=== PATIENT | female | born 1955 | race Caucasian/White ===

== ENCOUNTER → 2016-11-15 | Outpatient (CLI) | payer BC ==
--- NOTE | 2016-11-16 18:53 | Diagnostic Imaging Report ---
Bilateral screening mammogram The current study was also evaluated with a Computer Aided Detection (CAD) system. INDICATION: Screening. No current complaints stated on the questionnaire. COMPARISON: 08/06/2014. FINDINGS: The breasts are composed of scattered fibroglandular densities. There are bilateral breast nodules seen and scattered bilateral benign-appearing calcifications noted. No mass, architectural distortion, or suspicious cluster of calcifications is seen. Allowing for technique and positional differences, no suspicious change is seen. IMPRESSION: No significant change. ACR BI-RADS Category 2: Benign findings. Result letter will be mailed to the patient. Note: At least 10% of breast cancer is not imaged by mammography. Dictated by: Dictated on workstation # [id number]
== END ==
LOC: RAD 14:49
PROVIDERS: ATTEND Family Medicine
DX: Z12.31 Encounter for screening mammogram for malignant neoplasm of breast (principal)
CPT/HCPCS: 77067

== ENCOUNTER → 2018-01-03 | Outpatient (CLI) | payer BC ==
--- NOTE | 2018-01-04 13:34 | Diagnostic Imaging Report ---
EXAM: Digital mammogram bilateral screening with 3D tomosynthesis. COMPARISON: This study was compared prior exams of 11/15/2016 and 08/06/2014. Currently there are no complaints. FINDINGS: And there are scattered fibroglandular densities in both breasts which could obscure a lesion. The benign-appearing nodular densities in each breast seen on the prior study are again evident and no different. However, there is a small group of calcific densities in the upper-outer quadrant of the right breast roughly 12 - 14 CM from the nipple. There are few vascular structures in this area and these calcifications could be vascular in nature. Even so, I would recommend a compression/magnification view of this area be obtained in the CC and ML projections so that these calcific densities can be better characterized. The overall appearance of the breasts has not changed significantly otherwise. The benign-appearing nodular densities in each breast seen on the prior study are again visualized and no different. There is no primary or secondary sign of malignancy identified. IMPRESSION: Additional mammographic views of the right breast were recommended for further study. ACR BI-RADS Category 0: Incomplete. (Needs additional imaging evaluation). Result letter will be mailed to the patient. Note: At least 10% of breast cancer is not imaged by mammography. Dictated by: Dictated on workstation # [id number]
== END ==
LOC: RAD 15:02
PROVIDERS: ATTEND Family Medicine
DX: Z12.31 Encounter for screening mammogram for malignant neoplasm of breast (principal)
CPT/HCPCS: 77067

== ENCOUNTER → 2018-01-31 | Outpatient (CLI) | payer BC ==
[~2018-01-31] VITALS: Ht 152.4 cm; Wt 126.1 kg
[~2018-01-31] MED LIST: LIDOCAINE 1% INJ 20 ML 20 ML VIAL INJ ONE; LIDOCAINE 1% INJ 20 ML 20 ML VIAL ONE
[2018-01-31 13:00] VITALS: BP 121/68
[2018-01-31 13:45] VITALS: BP 129/80
--- NOTE | 2018-01-31 15:21 | Diagnostic Imaging Report ---
INDICATION: Right breast calcifications. Patient presents for stereotactic biopsy. PROCEDURE: The patient was brought to the mammography suite. The right breast was positioned for a CC approach. The calcifications in the outer portion of the right breast were stereotactically targeted. Right breast was prepped and draped in usual sterile fashion. Small amount of 1% lidocaine was utilized for local anesthesia. 8 gauge needle was advanced into the right breast from a superior approach. A total of four core biopsies were obtained with the vacuum assisted device. Specimen radiograph was obtained demonstrating the majority of calcifications located in specimen labeled #2 and #3. A localizer clip was then deployed. Followup mammography demonstrates clip in the upper-outer right breast at mid depth. Patient tolerated the procedure well. IMPRESSION: Stereotactically assisted core biopsy of the microcalcifications in the upper-outer right breast utilizing a vacuum-assisted device. Pathology results are currently pending. Dictated by: Dictated on workstation # [id number]
== END ==
LOC: RAD 12:41
PROVIDERS: ATTEND Family Medicine
DX: D24.1 Benign neoplasm of right breast (principal)
CPT/HCPCS: 19081; 88305

== ENCOUNTER → 2018-09-17 | Outpatient (CLI) | payer BC | LOC: WOUNDCARE 13:23 | PROVIDERS: ATTEND Surgery | DX: T88.59XA Other complications of anesthesia, initial encounter (principal); L98.492 Non-pressure chronic ulcer of skin of other sites with fat layer exposed; E66.01 Morbid (severe) obesity due to excess calories; Z96.642 Presence of left artificial hip joint | CPT/HCPCS: 11042; 87070; 87077; 87186; 87205 ==

== ENCOUNTER → 2018-09-25 | Outpatient (CLI) | payer BC | LOC: WOUNDCARE 09:57 | PROVIDERS: ATTEND Surgery | DX: T88.59XA Other complications of anesthesia, initial encounter (principal); L98.492 Non-pressure chronic ulcer of skin of other sites with fat layer exposed; E66.01 Morbid (severe) obesity due to excess calories; Z68.41 Body mass index [BMI] 40.0-44.9, adult; Z96.642 Presence of left artificial hip joint | CPT/HCPCS: 11042 ==

== ENCOUNTER → 2018-10-02 | Outpatient (CLI) | payer BC | LOC: WOUNDCARE 09:35 | PROVIDERS: ATTEND Surgery | DX: T88.59XA Other complications of anesthesia, initial encounter (principal); L98.492 Non-pressure chronic ulcer of skin of other sites with fat layer exposed; E66.01 Morbid (severe) obesity due to excess calories; Z68.41 Body mass index [BMI] 40.0-44.9, adult; Z96.642 Presence of left artificial hip joint | CPT/HCPCS: 11042 ==

== ENCOUNTER → 2018-10-09 | Outpatient (CLI) | payer BC | LOC: WOUNDCARE 09:55 | PROVIDERS: ATTEND Surgery | DX: T88.59XA Other complications of anesthesia, initial encounter (principal); L98.492 Non-pressure chronic ulcer of skin of other sites with fat layer exposed; E66.01 Morbid (severe) obesity due to excess calories; Z68.41 Body mass index [BMI] 40.0-44.9, adult; Z96.642 Presence of left artificial hip joint | CPT/HCPCS: 11042; 87070; 87077; 87205 ==

== ENCOUNTER → 2018-10-16 | Outpatient (CLI) | payer BC | LOC: WOUNDCARE 10:01 | PROVIDERS: ATTEND Surgery | DX: T88.59XA Other complications of anesthesia, initial encounter (principal); L98.492 Non-pressure chronic ulcer of skin of other sites with fat layer exposed; E66.01 Morbid (severe) obesity due to excess calories; Z68.41 Body mass index [BMI] 40.0-44.9, adult; Z96.642 Presence of left artificial hip joint | CPT/HCPCS: 11042 ==

== ENCOUNTER → 2018-10-23 | Outpatient (CLI) | payer BC | LOC: WOUNDCARE 10:23 | PROVIDERS: ATTEND Surgery | DX: T88.59XA Other complications of anesthesia, initial encounter (principal); L98.492 Non-pressure chronic ulcer of skin of other sites with fat layer exposed; E66.01 Morbid (severe) obesity due to excess calories; Z68.41 Body mass index [BMI] 40.0-44.9, adult; Z96.642 Presence of left artificial hip joint | CPT/HCPCS: 11042 ==

== ENCOUNTER → 2018-10-30 | Outpatient (CLI) | payer BC | LOC: WOUNDCARE 09:49 | PROVIDERS: ATTEND Surgery | DX: T88.59XA Other complications of anesthesia, initial encounter (principal); L98.492 Non-pressure chronic ulcer of skin of other sites with fat layer exposed; E66.01 Morbid (severe) obesity due to excess calories; Z96.642 Presence of left artificial hip joint | CPT/HCPCS: 11042 ==

== ENCOUNTER → 2018-11-06 | Outpatient (CLI) | payer BC | LOC: WOUNDCARE 09:37 | PROVIDERS: ATTEND Surgery | DX: B35.4 Tinea corporis (principal); L92.8 Other granulomatous disorders of the skin and subcutaneous tissue; T88.59XA Other complications of anesthesia, initial encounter; L98.492 Non-pressure chronic ulcer of skin of other sites with fat layer exposed; E66.01 Morbid (severe) obesity due to excess calories; Z68.41 Body mass index [BMI] 40.0-44.9, adult; Z96.642 Presence of left artificial hip joint | CPT/HCPCS: 17250 ==

== ENCOUNTER → 2018-11-13 | Outpatient (CLI) | payer BC | LOC: WOUNDCARE 09:51 | PROVIDERS: ATTEND Surgery | DX: B35.4 Tinea corporis (principal); L92.8 Other granulomatous disorders of the skin and subcutaneous tissue; T88.59XA Other complications of anesthesia, initial encounter; L98.492 Non-pressure chronic ulcer of skin of other sites with fat layer exposed; E66.01 Morbid (severe) obesity due to excess calories; Z68.41 Body mass index [BMI] 40.0-44.9, adult; Z96.642 Presence of left artificial hip joint | CPT/HCPCS: 17250 ==

== ENCOUNTER → 2018-11-13 | Outpatient (CLI) | payer BC ==
--- NOTE | 2018-11-13 14:41 | Diagnostic Imaging Report ---
INDICATION: Six-month followup right breast stereotactic biopsy. COMPARISON: 01/23/2018 and 01/31/2018. FINDINGS: The patient is status post stereotactic biopsy of clustered microcalcifications in the upper outer right breast. The biopsy results were benign. There is some residual density at the biopsy site, likely from scarring. Rounded densities in the right breast appear stable and consistent with benign etiologies. No new mass or malignant appearing microcalcifications are seen. There are benign calcifications on the right. The right axilla is unremarkable. IMPRESSION: Stable right mammogram. No mammographic features suspicious for malignancy are identified. ACR BI-RADS Category 2: Benign findings. Result letter will be mailed to the patient. Note: At least 10% of breast cancer is not imaged by mammography. Dictated by: Dictated on workstation # [id number]
== END ==
LOC: RAD 13:07
PROVIDERS: ATTEND Family Medicine
DX: R92.2 Inconclusive mammogram (principal)

== ENCOUNTER → 2018-11-20 | Outpatient (CLI) | payer BC | LOC: WOUNDCARE 09:42 | PROVIDERS: ATTEND Surgery | DX: L92.8 Other granulomatous disorders of the skin and subcutaneous tissue (principal); B35.4 Tinea corporis; T88.59XA Other complications of anesthesia, initial encounter; L98.492 Non-pressure chronic ulcer of skin of other sites with fat layer exposed; E66.01 Morbid (severe) obesity due to excess calories; Z68.41 Body mass index [BMI] 40.0-44.9, adult; Z96.642 Presence of left artificial hip joint | CPT/HCPCS: 17250 ==

== ENCOUNTER → 2018-11-27 | Outpatient (CLI) | payer BC | LOC: WOUNDCARE 09:47 | PROVIDERS: ATTEND Surgery | DX: L92.8 Other granulomatous disorders of the skin and subcutaneous tissue (principal); B35.4 Tinea corporis; T88.59XA Other complications of anesthesia, initial encounter; L98.492 Non-pressure chronic ulcer of skin of other sites with fat layer exposed; E66.01 Morbid (severe) obesity due to excess calories; Z68.41 Body mass index [BMI] 40.0-44.9, adult; Z96.642 Presence of left artificial hip joint | CPT/HCPCS: 17250 ==

== ENCOUNTER → 2018-12-03 | Outpatient (CLI) | payer BC | LOC: WOUNDCARE 13:05 | PROVIDERS: ATTEND Surgery | DX: L98.492 Non-pressure chronic ulcer of skin of other sites with fat layer exposed (principal); L92.8 Other granulomatous disorders of the skin and subcutaneous tissue; B35.4 Tinea corporis; E66.01 Morbid (severe) obesity due to excess calories; T88.59XA Other complications of anesthesia, initial encounter; Z96.642 Presence of left artificial hip joint | CPT/HCPCS: 17250 ==

== ENCOUNTER → 2018-12-11 | Outpatient (CLI) | payer BC | LOC: WOUNDCARE 09:52 | PROVIDERS: ATTEND Surgery | DX: L92.8 Other granulomatous disorders of the skin and subcutaneous tissue (principal); L98.492 Non-pressure chronic ulcer of skin of other sites with fat layer exposed; B35.4 Tinea corporis; T88.59XA Other complications of anesthesia, initial encounter; E66.01 Morbid (severe) obesity due to excess calories; Z68.41 Body mass index [BMI] 40.0-44.9, adult; Z96.642 Presence of left artificial hip joint | CPT/HCPCS: 17250 ==

== ENCOUNTER → 2018-12-18 | Outpatient (CLI) | payer BC | LOC: WOUNDCARE 09:38 | PROVIDERS: ATTEND Surgery | DX: L92.8 Other granulomatous disorders of the skin and subcutaneous tissue (principal); L98.492 Non-pressure chronic ulcer of skin of other sites with fat layer exposed; B35.4 Tinea corporis; T88.59XA Other complications of anesthesia, initial encounter; E66.01 Morbid (severe) obesity due to excess calories; Z68.41 Body mass index [BMI] 40.0-44.9, adult; Z96.642 Presence of left artificial hip joint | CPT/HCPCS: 99212 ==

== ENCOUNTER → 2020-01-13 | Outpatient (CLI) | payer BC, OTHER ==
--- NOTE | 2020-01-13 12:55 | Diagnostic Imaging Report ---
INDICATION: Routine screening. Comparison is made with prior mammogram 01/03/2018 and 11/15/2016. 2-D and 3-D bilateral screening mammography was performed with CAD. Both breasts are heterogeneously dense, limiting the sensitivity of mammography. A biopsy clip in the outer right breast is noted. A rounded mass is noted in both breasts appears stable. There are benign calcifications in both breasts. No spiculated mass or malignant appearing microcalcifications are seen. Axillae are unremarkable. IMPRESSION: BI-RADS Category 2 No mammographic features suspicious for malignancy are identified. ACR BI-RADS Category 2: Benign findings. Result letter will be mailed to the patient. Note: At least 10% of breast cancer is not imaged by mammography. Dictated by: Dictated on workstation # [id number]
== END ==
LOC: RAD 10:35
PROVIDERS: ATTEND Family Medicine
DX: Z12.31 Encounter for screening mammogram for malignant neoplasm of breast (principal)
CPT/HCPCS: 77063; 77067

== ENCOUNTER 2020-09-30 08:00 | Outpatient (RCR) | payer OTHER | END 2020-12-29 | disposition home or self-care (01) | LOC: LAB 08:00 | PROVIDERS: ATTEND Internal Medicine Gastroenterology | DX: K92.1 Melena (principal); R19.7 Diarrhea, unspecified; R79.9 Abnormal finding of blood chemistry, unspecified; R16.0 Hepatomegaly, not elsewhere classified | CPT/HCPCS: 36415; 82705 ==

== ENCOUNTER → 2020-09-30 | Outpatient (CLI) | payer OTHER | LOC: LABNPT 05:50 | PROVIDERS: ATTEND Internal Medicine Gastroenterology | DX: Z01.812 Encounter for preprocedural laboratory examination (principal); Z20.822 Contact with and (suspected) exposure to COVID-19 | CPT/HCPCS: 87635 ==

== ENCOUNTER → 2020-10-07 | Outpatient (CLI) | payer OTHER | LOC: LABNPT 05:22 | PROVIDERS: ATTEND Internal Medicine Gastroenterology | DX: Z01.812 Encounter for preprocedural laboratory examination (principal); Z20.822 Contact with and (suspected) exposure to COVID-19 | CPT/HCPCS: 87635 ==

== ENCOUNTER → 2021-01-14 | Outpatient (CLI) | payer OTHER ==
--- NOTE | 2021-01-14 13:14 | Diagnostic Imaging Report ---
INDICATION: Routine screening. COMPARISON is made with prior mammograms from 01/13/2020 and 01/03/2018. 2-D and 3-D bilateral screening mammography was performed with CAD. Scattered fibroglandular densities are identified bilaterally. A biopsy marker clip in the lateral right breast is noted. There are numerous rounded masses in both breasts, waxing and waning in size suggestive of cysts. There are scattered benign calcifications. No spiculated mass or malignant appearing microcalcifications are seen. Axillae are unremarkable. IMPRESSION: BI-RADS Category 2 No mammographic features suspicious for malignancy are identified. ACR BI-RADS Category 2: Benign findings. Result letter will be mailed to the patient. Note: At least 10% of breast cancer is not imaged by mammography. Dictated by: Dictated on workstation # [id number]
== END ==
LOC: RAD 11:00
PROVIDERS: ATTEND Family Medicine
DX: Z12.31 Encounter for screening mammogram for malignant neoplasm of breast (principal)
CPT/HCPCS: 77063; 77067

== ENCOUNTER → 2022-03-20 | Outpatient (CLI) | payer MEDICARE, OTHER ==
--- NOTE | 2022-03-20 12:56 | Diagnostic Imaging Report ---
INDICATION: Routine screening. COMPARISON: 01/14/2021 and 01/13/2020. TECHNIQUE: 2D and 3D bilateral screening mammography was performed with CAD. FINDINGS: Scattered fibroglandular densities are identified bilaterally. There are benign calcifications bilaterally. A biopsy marker clip in the upper outer right breast is again noted. Rounded masses in both breasts appear stable. No spiculated mass or malignant-appearing microcalcifications are seen. The axillae are unremarkable. IMPRESSION: No mammographic features suspicious for malignancy are identified. ACR BI-RADS Category 2: Benign findings. Result letter will be mailed to the patient. Note: At least 10% of breast cancer is not imaged by mammography. Dictated by: Dictated on workstation # [id number]
== END ==
LOC: RAD 10:13
PROVIDERS: ATTEND Family Medicine
DX: Z12.31 Encounter for screening mammogram for malignant neoplasm of breast (principal)
CPT/HCPCS: 77063; 77067

== ENCOUNTER → 2023-03-23 | Outpatient (CLI) | payer MEDICARE ==
--- NOTE | 2023-03-23 12:34 | Diagnostic Imaging Report ---
Indication: Routine screening. Comparison is made with prior mammograms from 03/20/2022 and 01/14/2021. 2-D and 3-D bilateral screening mammography was performed with CAD. Both breasts are heterogeneously dense, limiting the sensitivity of mammography. Biopsy marker clip outer right breast is again noted. There are scattered benign calcifications throughout both breasts. There are circumscribed benign-appearing nodules in both breasts which appear stable. No spiculated mass or malignant-appearing microcalcifications are seen. Axillae are unremarkable. IMPRESSION: BI-RADS Category 2 No mammographic features suspicious for malignancy are identified. ACR BI-RADS Category 2: Benign findings. Result letter will be mailed to the patient. Note: At least 10% of breast cancer is not imaged by mammography. Dictated by: Dictated on workstation # [id number]
== END ==
LOC: RAD 09:44
PROVIDERS: ATTEND Family Medicine
DX: Z12.31 Encounter for screening mammogram for malignant neoplasm of breast (principal)
CPT/HCPCS: 77063; 77067